=== PATIENT | female | born 1975 | race Caucasian/White ===

== ENCOUNTER 2023-04-11 01:28 | Emergency (ER) | payer MEDICAID ==
[~2023-04-11] VITALS: Ht 154.9 cm; Wt 74.8 kg
[2023-04-11 01:55] VITALS: BP 131/53; PULSE 105; RESP 18; TEMP 99.8; O2SAT 97
[2023-04-11] MEDS ORDERED: ACETAMINOPHEN EXTRA STRENGTH 500 MG TAB PO ONE (02:45)
[2023-04-11] MEDS ORDERED: ONDANSETRON 4 MG ODT PO ONE (02:45)
[2023-04-11] MEDS ORDERED: IBUPROFEN 600 MG TAB PO ONE (02:45)
[2023-04-11] MEDS ORDERED: DEXAMETHASONE 4 MG/ML VIAL PO ONE (03:10)
[2023-04-11] MEDS ORDERED: ROB PO (03:51)
[2023-04-11] MEDS ORDERED: ONDA-188 SL (03:51)
[2023-04-11] MEDS ORDERED: IBUP-1842 PO (03:51)
[2023-04-11] MEDS ORDERED: ACET-2619 PO (03:51)
[2023-04-11 04:13] VITALS: BP 110/56; PULSE 86; RESP 17; TEMP 98.5; O2SAT 97
[2023-04-11 05:05] LABS: FLU A ANTIGEN negative (NEGATIVE); FLU B ANTIGEN NEGATIVE (NEGATIVE)
== END 2023-04-11 04:14 | disposition home or self-care (01) ==
LOC: MED 01:28
DX: B34.9 Viral infection, unspecified (principal); Z20.822 Contact with and (suspected) exposure to COVID-19; Z79.899 Other long term (current) drug therapy
CPT/HCPCS: 71045; 87426; 87804; 99284; J1100; Q0092; Q0162